=== PATIENT | male | born 1940 ===

== ENCOUNTER 2023-01-07 10:10 | Outpatient (CLI) | payer OTHER | END 2023-01-07 10:12 | disposition home or self-care (01) | LOC: RAD 10:10 | PROVIDERS: ATTEND Orthopaedic Surgery | DX: S83.201A Bucket-handle tear of unspecified meniscus, current injury, left knee, initial encounter (principal); M25.561 Pain in right knee; M25.562 Pain in left knee | CPT/HCPCS: 73721 ==

== ENCOUNTER 2023-01-22 10:54 | Outpatient (CLI) | payer OTHER | END 2023-01-22 10:59 | disposition home or self-care (01) | LOC: RAD 10:54 | PROVIDERS: ATTEND Orthopaedic Surgery | DX: R07.9 Chest pain, unspecified (principal) ==